=== PATIENT | male | born 1960 | race Caucasian/White ===

== ENCOUNTER 2023-05-26 11:06 | Emergency (ER) | payer BC ==
--- OUTSIDE RECORDS SUMMARY | 2023-05-26 11:09 | XMS REPORT | Continuity of Care Document ---
Author Name Unknown Address [address] [place] [address] thconnect Address [address] [place] [address] [phone] Care Team Providers Care Grain Shipper Name Role Phone Linda Kumar Attending Clinician Unavailab le Encounters Start Date/Time End Date/Time Encounter Type Admission Type Attending Clinicians Care Facility Care Department Encounter ID Source 2023-05-24 10:33:01 Outpatient Linda Kumar [facility] [id number] [facility]
[2023-05-26 11:58] LABS: Absolute Lymphocytes (CBC) 0.8 K/uL (0.7-4.9); Hematocrit 40.6 % (39.6-49.0); MCV 92.4 fL (80-100); Platelets 246 thou/uL (152-406); RBC Red Blood Cell Count 4.39 M/uL (4.33-5.43)
[2023-05-26] MEDS ORDERED: MORPHINE 4 MG/ML SYR ONE ×2 (11:59→12:40)
[2023-05-26] MEDS ORDERED: ONDANSETRON 4 MG/2 ML VIAL ONE ×2 (11:59→12:40)
[2023-05-26] MEDS ORDERED: KETOROLAC 30 MG/ML INJ ONE (11:59)
[2023-05-26] MEDS ORDERED: HYDROMORPHONE HCL 1 MG/ML INJ ONE (13:00)
[2023-05-26 13:06] LABS: Specific Gravity 1.022 (1.005-1.030); Urine Bacteria None Seen /HPF (<20); Urine Bilirubin NEGATIVE (Negative); Urine Blood 1+ (Negative); Urine Clarity Turbid (Clear); Urine Color Light-Yellow (Yellow); Urine Glucose NEGATIVE (Negative); Urine Mucus 1+ /HPF (None Seen); Urine Protein TRACE (Negative); Urine RBC >50 /HPF (None Seen); Urine Urobilinogen Normal (Normal); Urine pH 7.5 (5.0-7.0)
--- NOTE | 2023-05-26 13:29 | RAD REPORT ---
EXAM DESCRIPTION: RAD - Chest Single View - 05/26/2023 1:23 pm CLINICAL HISTORY: preop Chest pain. COMPARISON: <Comparisons> FINDINGS: Portable technique limits examination quality. The lungs are mildly emphysematous but grossly clear. The heart is normal in size. No displaced fract ures.Thyroid bed surgical clips. IMPRESSION: No acute intrathoracic process suspected.
[2023-05-26] MEDS ORDERED: DIPHENHYDRAMINE 50 MG/ML VIAL ONE (13:58)
[2023-05-26] MEDS ORDERED: METOCLOPRAMIDE 10 MG/2mL INJ ONE (13:59)
--- NOTE | 2023-05-26 14:46 | ER ---
Nurse's Notes [facility] Name: Mode Rocha Age: 62 yrs Sex: Male : 1960 Arrival Date: 05/26/2023 Time: 11:06 Bed 19 Private MD: Diagnosis: Calculus of ureter;Vasovagal syncope Presentation: 05/26 11:23 Chief complaint: Has lithotripsy scheduled next Monday with Dr. Armando, was in pre hb admit this morning and had a syncopal episode during blood draw, c/o severe right flank pain 03/28. Coronavirus screen: At this time, the client does not indicate any symptoms associated with coronavirus-19. Ebola Screen: No symptoms or risks identified at this time. Initial Sepsis Screen: Does the patient meet any 2 criteria? No. Patient's initial sepsis screen is negative. Does the patient have a suspected source of infection? No. Patient's initial sepsis screen is negative. Risk Assessment: Do you want to hurt yourself or someone else? Patient reports no desire to harm self or others. Onset of symptoms was May 26, 2023. 11:23 Method Of Arrival: Wheelchair hb 11:23 Acuity: FLY 3 hb Historical: - Allergies: 11:21 No Known Allergies; tm6 - PMHx: 11:21 Hypertension; Hypothyroidism; tm6 - PSHx: 11:21 Thyroidectomy; Lithotripsy; tm6 - Immunization history:: Adult Immunizations up to date. - Social history:: Smoking status: unknown. - Family history:: not pertinent. Screenin:21 [facility] ED Fall Risk Assessment (Adult) History of falling in the last 3 months, tm6 including since admission No falls in past 3 months (0 pts). Abuse screen: Denies threats or abuse. Denies injuries from another. Nutritional screening: No deficits noted. Tuberculosis screening: No symptoms or risk factors identified. Assessment: 11:19 General: Appears distressed, Behavior is calm, cooperative. Pain: Complains of pain in tm6 anterior aspect of left lateral abdomen and posterior aspect of left lateral abdomen Pain currently is 10 out of 10 on a pain scale. Pain: Quality of pain is described as sharp. Neuro: Level of Consciousness is awake, alert, obeys commands, Oriented to person, place, time, situation. Cardiovascular: Capillary refill < 3 seconds Patient's skin is warm and dry. Respiratory: Airway is patent Respiratory effort is even, unlabored, Respiratory pattern is regular, symmetrical. GI: Bowel sounds present X 4 quads. Abdomen is tender to palpation in posterior aspect of left lateral abdomen, right upper quadrant and right lower quadrant. : Reports pain in right flank(s), has known kidney stone. EENT: No signs and/or symptoms were reported regarding the EENT system. Derm: No signs and/or symptoms reported regarding the dermatologic system. Musculoskeletal: No signs and/or symptoms reported regarding the musculoskeletal system. 11:57 Reassessment: Patient states symptoms have not improved. tm6 12:53 Reassessment: Patient appears in no apparent distress at this time. Patient and/or tm6 family updated on plan of care and expected duration. Pain level reassessed. Patient is alert, oriented x 3, equal unlabored respirations, skin warm/dry/pink. 13:31 Reassessment: continued nausea and vomiting. tm6 14:37 Reassessment: Patient appears in no apparent distress at this time. Patient and/or tm6 family updated on plan of care and expected duration. Pain level reassessed. Patient is alert, oriented x 3, equal unlabored respirations, skin warm/dry/pink. Vital Signs: 11:21 BP 145 / 88; Pulse 65; Resp 19; Pulse Ox 100% ; Pain 10/10; tm6 11:55 BP 143 / 84; Pulse 68; Pulse Ox 100% ; Pain 8/10; tm6 12:53 BP 124 / 82; Pulse 71; Pulse Ox 94% on R/A; Pain 7/10; tm6 13:31 BP 134 / 78; Pulse 80; Pulse Ox 99% on R/A; Pain 2/10; tm6 14:37 BP 138 / 82; Pulse 74; Pulse Ox 99% on R/A; tm6 11:21 Pain Scale: Adult tm6 11:55 Pain Scale: Adult tm6 12:53 Pain Scale: Adult tm6 13:31 Pain Scale: Adult tm6 Vitals: 11:55 Cardiac Rhythm Assessment Regular Sinus rhythm. tm6 ED Course: 11:09 Patient arrived in ED. mg5 11:10 Christ Stephens MD is Attending Physician. rt 11:13 Jenny Parrish RN is Primary Nurse. tm6 11:21 Patient has correct armband on for positive identification. Bed in low position. Call tm6 light in reach. Side rails up X2. Provided Education on: VS monitoring. Door closed. Noise minimized. Lights dimmed. Warm blanket given. 11:25 Triage completed. hb 11:48 Inserted saline lock: 20 gauge in right antecubital area, using aseptic technique. aw1 11:48 Initial lab(s) drawn, by me, sent to lab. aw1 13:24 Chest Single View In Process Unspecified. EDMS 14:46 Binu Armando MD is Referral Physician. rt 15:05 No provider procedures requiring assistance completed. IV discontinued, intact, tm6 bleeding controlled, No redness/swelling at site. Pressure dressing applied. 15:07 Arm band placed on right wrist. tm6 Administered Medications: 11:52 Drug: morphine IVP or IV 4 mg IVP once over 4 mins Route: IVP; Infused Over: 4 mins; tm6 Site: right antecubital; 11:52 Drug: Ondansetron IVP 4 mg IVP once; over 2 minutes Route: IVP; Site: right antecubital;tm6 11:53 Drug: Ketorolac IVP 15 mg IVP once Route: IVP; Site: right antecubital; tm6 12:49 Not Given (Patient Refused): morphineor iv 4 mg IVP once over 4 mins tm6 12:49 Drug: Ondansetron IVP 4 mg IVP once; over 2 minutes Route: IVP; Site: right antecubital;tm6 12:49 Drug: HYDROmorphone IVP 1 mg IVP once Route: IVP; Site: right antecubital; tm6 13:41 Not Given (backorder): [id number] mg IVP once rt 13:50 Drug: metoCLOPramide IVP 10 mg IVP once; over 1 to 2 minutes Route: IVP; Site: right tm6 antecubital; 13:50 Drug: diphenhydrAMINE IVP 25 mg IVP once Route: IVP; Site: right antecubital; tm6 Medication: 11:21 VIS not applicable for this client. tm6 Output: 11:55 Gastric: 100ml (Emesis); Total: 100ml. tm6 Outcome: 14:46 Discharge ordered by . rt 15:05 Discharged to home ambulatory, with family, tm6 15:05 Condition: improved 15:05 Discharge instructions given to patient, family, Instructed on discharge instructions, follow up and referral plans. medication usage, Demonstrated understanding of instructions, follow-up care, medications, Prescriptions given X 3, 15:07 Patient left the ED. tm6 Signatures: Dispatcher [employer] EDMS Becky Adams RN RN Christ Anguiano MD MD rt Warren, Alyssa aw1 Cecelia Dodd mg5 Jenny Parrish RN RN tm6
--- NOTE | 2023-05-26 14:46 | EDPHYS ---
Physician Documentation [facility] Name: Mdoe Rocha Age: 62 yrs Sex: Male : 1960 Arrival Date: 05/26/2023 Time: 11:06 Bed 19 Private MD: ED Physician Christ Stephens HPI: 05/26 11:47 This 62 yrs old Male presents to ER via Wheelchair with complaints of Possible Kidney rt Stone. 11:47 Patient is scheduled to have a lithotripsy performed this coming Monday. Patient was rt getting preoperative labs today, had a syncopal event while blood was being drawn which is not uncommon for him. He only had a brief loss of consciousness. Denies any chest pain, shortness of breath. Patient does report of worsening kidney stone pain to the right flank today, sharp in nature, severe in severity. Denies other acute complaints other than nausea and vomiting,. Historical: - Allergies: 11:21 No Known Allergies; tm6 - PMHx: 11:21 Hypertension; Hypothyroidism; tm6 - PSHx: 11:21 Thyroidectomy; Lithotripsy; tm6 - Immunization history:: Adult Immunizations up to date. - Social history:: Smoking status: unknown. - Family history:: not pertinent. ROS: 11:47 Constitutional: Negative for fever, chills, and weight loss, Cardiovascular: Negative rt for chest pain, palpitations, and edema, Respiratory: Negative for shortness of breath, cough, wheezing, and pleuritic chest pain, MS/Extremity: Negative for injury and deformity, Skin: Negative for injury, rash, and discoloration, Psych: Negative for depression, anxiety, suicide ideation, homicidal ideation, and hallucinations, 11:47 Abdomen/GI: Positive for nausea and vomiting, Negative for abdominal pain, 11:47 Back: Positive for flank pain, Negative for injury or acute deformity, 11:47 Neuro: Positive for syncope, Negative for altered mental status, Exam: 11:47 Constitutional: This is a well developed, well nourished patient who is awake, alert, rt and in no acute distress. Head/Face: Normocephalic, atraumatic. Chest/axilla: Normal chest wall appearance and motion. Nontender with no deformity. No lesions are appreciated. Cardiovascular: Regular rate and rhythm with a normal S1 and S2. No gallops, murmurs, or rubs. Normal PMI, no JVD. No pulse deficits. Respiratory: Lungs have equal breath sounds bilaterally, clear to auscultation and percussion. No rales, rhonchi or wheezes noted. No increased work of breathing, no retractions or nasal flaring. Abdomen/GI: Soft, non-tender, with normal bowel sounds. No distension or tympany. No guarding or rebound. No evidence of tenderness throughout. Skin: Warm, dry with normal turgor. Normal color with no rashes, no lesions, and no evidence of cellulitis. MS/ Extremity: Pulses equal, no cyanosis. Neurovascular intact. Full, normal range of motion. Neuro: Awake and alert, GCS 15, oriented to person, place, time, and situation. Cranial nerves II-XII grossly intact. Motor strength 5/5 in all extremities. Sensory grossly intact. Cerebellar exam normal. Normal gait. Psych: Awake, alert, with orientation to person, place and time. Behavior, mood, and affect are within normal limits. 11:47 ECG was reviewed by the Attending Physician. Vital Signs: 11:21 BP 145 / 88; Pulse 65; Resp 19; Pulse Ox 100% ; Pain 10/10; tm6 11:55 BP 143 / 84; Pulse 68; Pulse Ox 100% ; Pain 8/10; tm6 12:53 BP 124 / 82; Pulse 71; Pulse Ox 94% on R/A; Pain 7/10; tm6 13:31 BP 134 / 78; Pulse 80; Pulse Ox 99% on R/A; Pain 2/10; tm6 14:37 BP 138 / 82; Pulse 74; Pulse Ox 99% on R/A; tm6 11:21 Pain Scale: Adult tm6 11:55 Pain Scale: Adult tm6 12:53 Pain Scale: Adult tm6 13:31 Pain Scale: Adult tm6 MDM: 11:24 Patient medically screened. rt 15:32 Differential Diagnosis Electrolyte disturbance, kidney stone, pyelonephritis, vasovagal rt syncope. Data reviewed: vital signs, nurses notes, lab test result(s), EKG, radiologic studies. Consideration of Admission/Observation Escalation of care including admission/observation considered. Pain well-controlled with treatment in the ED, syncopal event most likely vasovagal in nature, benign EKG, labs, does not require admission for syncope workup. I considered the following discharge prescriptions or medication management in the emergency department Medications were administered in the Emergency Department. See MAR. Independent interpretation of the following test(s) in the Emergency Department X-Ray: My interpretation is No consolidations in interpretation of x-ray images. Test considered but Not performed: CT: Patient with known ureterolithiasis, scheduled lithotripsy in a few days, repeat imaging is not indicated.. Care significantly affected by the following chronic conditions: Hypertension. Counseling: I had a detailed discussion with the patient and/or guardian regarding the historical points, exam findings, and any diagnostic results supporting the discharge/admit diagnosis, lab results, radiology results, the need for outpatient follow up. Response to treatment: the patient's symptoms have markedly improved after treatment. 05/26 11:30 Order name: CBC with Diff; Complete Time: 12:35 rt 05/26 11:30 Order name: Troponin High Sensitivity; Complete Time: 12:35 rt 05/26 11:30 Order name: UAM; Complete Time: 13:14 rt 05/26 13:04 Order name: Chest Single View; Complete Time: 13:41 EDMS 05/26 11:30 Order name: EKG; Complete Time: 11:31 rt 12 11:30 Order name: EKG - Nurse/Tech; Complete Time: 11:53 rt EC:47 Rate is 80 beats/min. Rhythm is regular, Normal Sinus Rhythm with No ectopy. QRS [place] rt is Normal. TX interval is normal. QT interval is normal. No Q waves. T waves are Normal. No ST changes noted. Interpreted by me. Administered Medications: 11:52 Drug: morphine IVP or IV 4 mg IVP once over 4 mins Route: IVP; Infused Over: 4 mins; tm6 Site: right antecubital; 11:52 Drug: Ondansetron IVP 4 mg IVP once; over 2 minutes Route: IVP; Site: right antecubital;tm6 11:53 Drug: Ketorolac IVP 15 mg IVP once Route: IVP; Site: right antecubital; tm6 12:49 Not Given (Patient Refused): morphineor iv 4 mg IVP once over 4 mins tm6 12:49 Drug: Ondansetron IVP 4 mg IVP once; over 2 minutes Route: IVP; Site: right antecubital;tm6 12:49 Drug: HYDROmorphone IVP 1 mg IVP once Route: IVP; Site: right antecubital; tm6 13:41 Not Given (backorder): [id number] mg IVP once rt 13:50 Drug: metoCLOPramide IVP 10 mg IVP once; over 1 to 2 minutes Route: IVP; Site: right tm6 antecubital; 13:50 Drug: diphenhydrAMINE IVP 25 mg IVP once Route: IVP; Site: right antecubital; tm6 Disposition Summary: 05/26/23 14:46 Discharge Ordered Notes: Location: Home rt Problem: new rt Symptoms: have improved rt Condition: Stable rt Diagnosis - Calculus of ureter rt - Vasovagal syncope rt Followup: rt - With: Binu Armando MD - When: 2 - 3 days - Reason: Discharge Instructions: - Discharge Summary Sheet rt - Kidney Stones rt - Syncope rt Forms: - Medication Reconciliation Form rt - Thank You Letter rt - Antibiotic Education rt - Prescription Opioid Use rt - Patient Portal Instructions rt - Leadership Thank You Letter rt Prescriptions: - ketorolac 10 mg Oral tablet - take 1 tablet ORAL route every 6 hours for 3 days as needed for pain; 6 tablet; rt Refills: 0, Product Selection Permitted - Reglan 10 mg Oral tablet - take 1 tablet ORAL route every 6 hours as needed for nausea; 20 tablet; rt Refills: 0, Product Selection Permitted - Tramadol 50 mg Oral Tablet - take 1 tablet ORAL route every 8 hours as needed; 12 tablet; Refills: 0, rt Product Selection Permitted Signatures: Dispatcher [employer] Christ Antonio MD MD rt Jenny Parrish RN RN tm6 Corrections: (The following items were deleted from the chart) 13:04 12:40 Chest Pa And Lat (2 Views)+RAD.[email or web address] ordered. SUJIT BECKETT
[2023-05-26 15:36] VITALS: O2SAT 99
[2023-05-26 15:37] VITALS: BP 138/82
--- NOTE | 2023-05-30 13:57 | EKG ---
Test Date: 2023-05-26 Test Time: 11:40:35 Legal Biller: ALANA MEASUREMENT RESULTS: Intervals: Rate: 80 TN: 164 QRSD: 88 QT: 412 QTc: 475 [place]: P: 66 TN: 164 QRS: 78 T: 67 INTERPRETIVE STATEMENTS: Normal sinus rhythm Normal ECG Compared to ECG 05/26/2023 10:58:23 Sinus bradycardia no longer present Electronically Signed On 05-30-23 13:43:45 ASSISTANT COMMISSIONER by Alvin Cerrato
== END 2023-05-26 15:07 | disposition home or self-care (01) ==
LOC: ER 11:06
DX: N20.1 Calculus of ureter (principal); R55 Syncope and collapse; I10 Essential (primary) hypertension
CPT/HCPCS: 93005; 85025; 81001; 36415; 84484; 71045; 96375; 96374; 99284; J2765; J1200; J1170; J2405 ×2

== ENCOUNTER 2023-05-30 09:26 | Day surgery (SDC) | payer BC ==
[2023-05-26 11:29] LABS: Hematocrit 42.1 % (39.6-49.0); Lymphocytes % 20.5 % (15.3-44.8); MCV 93.7 fL (80-100); MPV 7.5 fL (7.6-11.3); Platelets 279 thou/uL (152-406); Potassium 3.8 mEq/L (3.5-5.1); Protime INR 1.04; RBC Red Blood Cell Count 4.49 M/uL (4.33-5.43)
[2023-05-30] MEDS ORDERED: Ringers Lactate 1,000 ML IV ONE (09:52)
[2023-05-30] MEDS ORDERED: propofoL 200 MG/20 ML VIAL IV ONE (10:45)
[2023-05-30] MEDS ORDERED: ONDANSETRON 4 MG/2 ML VIAL ONE (10:45)
[2023-05-30] MEDS ORDERED: KETOROLAC 30 MG/ML INJ ONE (10:45)
[2023-05-30] MEDS ORDERED: LIDOCAINE 2% MPF 5 ML VIAL ONE (10:45)
[2023-05-30] MEDS ORDERED: FENTANYL CITR 100 MCG/2 ML ONE (10:46)
[2023-05-30] MEDS ORDERED: MIDAZOLAM HCL 2 MG/2 ML INJ ONE (10:46)
[2023-05-30] MEDS ORDERED: CEFAZOLIN SODIUM 2 GM/VIAL ONE (11:21)
[2023-05-30] MEDS ORDERED: TRAMADOL 37.5mg/APAP 325mg PER TAB PO ONE (12:36)
[2023-05-30 13:49] VITALS: BP 113/44; TEMP 97.4; O2SAT 100
--- NOTE | 2023-05-30 13:58 | EKG ---
Test Date: 2023-05-26 Test Time: 10:58:23 Spear Fisher: MENDOZA MEASUREMENT RESULTS: Intervals: Rate: 57 MA: 158 QRSD: 96 QT: 436 QTc: 424 [place]: P: 29 MA: 158 QRS: 74 T: 67 INTERPRETIVE STATEMENTS: Sinus bradycardia Otherwise normal ECG No previous ECG available for comparison Electronically Signed On 05-30-23 13:43:49 ROUTE DELIVERY DRIVER by Alvin Cerrato
--- NOTE | 2023-05-30 17:01 | OP ---
Surgeon: EUNICE ANAND Preoperative Diagnoses: 1.12 mm right ureteropelvic junction calculus/right ureterolithiasis. 2.Right flank pain. Postoperative Diagnoses: 1.12 mm right ureteropelvic junction calculus/right ureterolithiasis. 2.Right flank pain. Principal Procedure: Right extracorporeal shockwave lithotripsy/ESWL. Indication For Procedure: Mr. Rocha presented to the Urology Clinic last week with severe flank pain associated with an obstructing 12 mm UPJ calculus on the right. He was counseled on options for bessie crook, specifically of his pain, but he refused placement of the ureteral stent, having had one in t he past that he found completely intolerable. As a result, he rather waited until he could be schedu led and complete direct treatment via ESWL. Procedure In Detail: The patient was consented in the preoperative holding area before being transfe rred to the operative suite where general anesthesia was induced. He was given Ancef 2 g IV antimicr obial prophylaxis, and pneumo boots were provided for DVT prophylaxis. He was placed supine on the s hockwave lithotripsy table with a water bath beneath his right flank. Targeting was then performed i n the left, right as well as dorsal ventral positions to center on the stone, which was visible as a radiopaque calcification lateral to the midline on the patient's right side. Shockwave lithotripsy w as then begun at a power of 4 and slowly increased over the course of about 500 shocks to a maximum p ower of 6. A 2 minute pause was given after about 200 shocks had been delivered, and after around 50 0 shocks had been delivered, the calcification was no longer visible in the ureter/UPJ. As a result, we surveyed the kidney and found a cloud of what appeared to be dust that it moved into the renal pe lvis/mid pole calyces. This was then retargeted, and additional shockwave lithotripsy was continued. This was continued till approximately 1000 shocks with no significant radiopaque densities could be identified. So, after 1250 shocks, we backed the therapeutic head out and surveyed the entirety of the kidney and down through the proximal and mid ureter for any densities suggestive of the calculus, and when none were seen, I then concluded shockwave lithotripsy after 1250 shocks. The patient was then awakened from general anesthesia, transferred to a stretcher, and then transferred to the [facility] ry room in good condition. Complications: None. Discharge Disposition: Follow up should be established in the Urology Clinic as he is a recurrent st one former to consider metabolic profile assessment. If he fails to have significant relief of his f lank pain within 1 to 2 weeks of shockwave lithotripsy completion, consideration may need to be given to definitive evaluation with retrograde pyelography and stent placement. A renal ultrasound may be obtained prior to assess for ongoing hydronephrosis to explain the pain and to rule out other compli cating feature. MARNI/MODL Voice ID: [id number] Report ID: [id number]
== END 2023-05-30 13:45 | disposition home or self-care (01) ==
LOC: OR 09:26
PROVIDERS: ATTEND Urology
DX: N20.1 Calculus of ureter (principal); I10 Essential (primary) hypertension; E89.0 Postprocedural hypothyroidism; E78.00 Pure hypercholesterolemia, unspecified; F32.A Depression, unspecified; Z87.442 Personal history of urinary calculi
CPT/HCPCS: 36415; 50590; 80048; 85025; 85610; 87086; 87088; 93005; J2001; J2250; J2405; J2704; J3010; J7120

== ENCOUNTER → 2023-07-26 | Day surgery (SDC) | payer BC, OTHER ==
[2023-07-24 15:44] LABS: Absolute Lymphocytes (CBC) 1.5 K/uL (0.7-4.9); Hematocrit 40.5 % (39.6-49.0); Lymphocytes % 24.8 % (15.3-44.8); MPV 7.3 fL (7.6-11.3); Platelets 253 thou/uL (152-406); RBC Red Blood Cell Count 4.35 M/uL (4.33-5.43)
[2023-07-24 16:01] LABS: Potassium 4.5 mEq/L (3.5-5.1)
[~2023-07-26] MED LIST: FENTANYL CITR 100 MCG/2 ML ONE; GLYCOPYRROLATE 0.2 MG/ML SYR ONE; KETAMINE HCL IN 0.9 % NACL 50 MG/5 ML SYRINGE IV ONE; KETOROLAC 30 MG/ML INJ ONE; LIDOCAINE 1% MPF 5 ML VIAL ONE; MIDAZOLAM HCL 2 MG/2 ML INJ ONE; Mastisol Adhesive Liq ONE; NEOSTIGMINE 1 MG/ML -10 ML VIAL ONE; ONDANSETRON 4 MG/2 ML VIAL ONE; Phenylephrine HCl 10 MG/ML 1 ML VIAL ONE; ROCURONIUM 50 MG/5 ML VIAL IV ONE; Ringers Lactate 1,000 ML IV ONE; dexAMETHasone 10 MG/ML VIAL ONE; propofoL 200 MG/20 ML VIAL IV ONE
[2023-07-26] MEDS: Ringers Lactate 1,000 ML IV ONE (06:57)
[2023-07-26] MEDS: CEFAZOLIN SODIUM 1 GM/VIAL ONE (08:00)
--- NOTE | 2023-07-26 08:43 | P.BOP ---
Preoperative diagnosis: tender left inguinal hernia Postoperative diagnosis: same Primary procedure: Laparoscopic repair of tender left inguinal hernia with mesh Estimated blood loss: <10cc Specimen: none Findings: LIH Anesthesia: General Complications: None Transferred to: Recovery Room Condition: Good
[2023-07-26] MEDS: CODEINE 30MG/APAP 300MG TAB ONE (10:03)
[2023-07-26] MEDS: ONDANSETRON 4 MG (ODT) TAB ONE (10:40)
[2023-07-26 11:46] VITALS: BP 97/72; TEMP 97.1; O2SAT 99
== END | disposition home or self-care (01) ==
LOC: OR 06:25
PROVIDERS: ATTEND Surgery
PROC: 0YU64JZ Supplement Left Inguinal Region with Synthetic Substitute, Percutaneous Endoscopic Approach (ICD-10-PCS; principal; 2023-07-26 07:30)
DX: K40.90 Unilateral inguinal hernia, without obstruction or gangrene, not specified as recurrent (principal)
CPT/HCPCS: 85025; 80048; 36415; 49650; Q0162; J2704; J2710; J2001; J2371; J2250; J3010; J1100; J2405; J7120 ×2; J0690